=== PATIENT | female | born 2000 | race Caucasian/White ===

== ENCOUNTER 2020-12-23 12:58 | Emergency (ER) | payer SELFPAY ==
[~2020-12-23] VITALS: Ht 167.6 cm; Wt 81.6 kg
--- NOTE | 2020-12-23 12:58 | NUR ---
PT [address] C/O ETOH. PT IS AAOX3, NOT IN RESPIRATORY DISTRESS, V/S STABLE, UNCOOPERATIVE, KEPT RESTED AND COMFORTABLE. WILL CONTINUE TO MONITOR.
--- NOTE | 2020-12-23 13:36 | NUR ---
SEEN AND EXAMINED BY .
[2020-12-23 14:01] LABS: BASOPHILS # (AUTO) 0.1 K/uL (0.0-0.2); BASOPHILS % (AUTO) 0.8 % (0.0-2.0); HEMATOCRIT 42 % (33-45); HEMOGLOBIN 13.8 g/dL (11.5-14.8); LYMPHOCYTES # (AUTO) 1.1 K/uL (0.8-4.8); MEAN CORPUSCULAR HGB CONC 33 g/dl (31.0-36.0); MEAN CORPUSCULAR VOLUME 83 fL (82-100); MONOCYTES # (AUTO) 0.7 K/uL (0.1-1.30); MONOCYTES % (AUTO) 7.5 % (2.0-12.0); NEUTROPHILS % (AUTO) 78.7 % (43.0-81.0); PLATELET COUNT (AUTO) 296 K/uL (150-450); RED BLOOD CELL COUNT(AUTO) 4.99 MIL/uL (4.0-5.2); WHITE BLOOD COUNT (AUTO) 8.9 K/uL (4.3-11.0)
[2020-12-23 14:52] LABS: ALBUMIN 3.9 g/dL (3.4-5.0); BILIRUBIN,DIRECT 0.1 mg/dL (0.0-0.2); BILIRUBIN,TOTAL 0.1 mg/dL (0.2-1.0); CALCIUM, SERUM 8.3 mg/dL (8.5-10.1); CREATININE 0.9 mg/dL (0.6-1.3); POTASSIUM 3.3 mmol/L (3.5-5.1); TOTAL PROTEIN, SERUM 7.3 g/dL (6.4-8.2)
--- NOTE | 2020-12-23 16:09 | NUR ---
URINE COLLECTED AND SENT TO THE LAB
[2020-12-23 16:55] LABS: BILIRUBIN,URINE NEGATIVE (NEGATIVE); COLOR,URINE YELLOW (YELLOW); LEUKOCYTE ESTERASE ,URINE NEGATIVE (NEGATIVE); NITRITE, URINE NEGATIVE (NEGATIVE); PH,URINE 5.5 (5.0-8.0); PROTEIN,URINE NEGATIVE (NEGATIVE); UGLUCOSE NEGATIVE (NEGATIVE); UROBILINOGEN,URINE 0.2 EU/dL (0.2)
[2020-12-23 17:00] LABS: BACTERIA,URINE 4+ /HPF (None Seen); RBC,URINE 21-50 /HPF (0-2)
[2020-12-23] MEDS ORDERED: POTASSIUM CHLORIDE 20 MEQ TAB.PRT.SR PO ONE (17:54)
[2020-12-23] MEDS: POTASSIUM CHLORIDE 20 MEQ TAB.PRT.SR PO ONE (18:22)
[2020-12-23] MEDS: IV NS 0.9% 1,000 ML IV ONE (18:30)
--- NOTE | 2020-12-23 20:52 | NUR ---
PT IS AWAKE, ALERT AND ORIENTED. AMBULATORY ON STEADY GAIT. ADMITS TO HAVE HAD TOO MUCH TOO MANY DRINK. DENIES SUICIDAL NOR HOMICIDAL IDEATION. PT WILL BE ABLE TO BE PICKED UP BY HIS BROTHER
--- NOTE | 2020-12-23 20:55 | NUR ---
WAS AT THE BEDSIDE
--- NOTE | 2020-12-23 21:12 | NUR ---
pt A, Ox4. ambulatory ew. steady gaits. po intake padmini well. medically stable for d/c per md. IV removed. Catheter intact and site benign. Pressure and 4x4 applied to site. No bleeding noted.Patient discharged to home in stable condition. Written and verbal after care instructions given. Patient verbalizes understanding of instruction.
[2020-12-23 22:24] VITALS: BP 117/80
== END 2020-12-23 21:12 | disposition home or self-care (01) ==
LOC: ER 13:06 → EDBD 13:06 → ER 21:12
DX: F10.129 Alcohol abuse with intoxication, unspecified (principal); E86.0 Dehydration; E87.6 Hypokalemia; R41.82 Altered mental status, unspecified; Y90.8 Blood alcohol level of 240 mg/100 ml or more
CPT/HCPCS: 36415; 70450; 80048; 80076; 80143; 80307; 80320; 81001; 82962; 84702; 85025; 87086; 96360; 99284; J7030; G0480